=== PATIENT | female | born 1990 | race Caucasian/White ===

== ENCOUNTER 2020-05-08 18:14 | Emergency (ER) | payer OTHER, SELFPAY ==
[2020-05-08 18:24] VITALS: BP 128/80; PULSE 116; PULSE 148; RESP 20; TEMP 36.8; O2SAT 97; O2SAT 99; BMI 27.4
--- NOTE | 2020-05-08 18:31 | ED.ANXIETY ---
HPI - Anxiety General Chief Complaint: Anxiety Stated Complaint: dizziness/anxiety Time Seen by Provider: 05/08/20 18:25 Source: patient Mode of arrival: ambulatory Limitations: no limitations History of Present Illness HPI narrative: Patient comes emergency room complaining of a panic attack, which occurred while she was shopping. Patient initially came in complaining of dizziness, when asked to explain dizziness, patient states that she can not describe the sensation, denies room/self spinning, no loss of balance, no lightheadedness. Patient states she has history of multiple panic attacks, triggers unknown. Patient states she used to take lorazepam 0.5 mg p.r.n., but she was asked to stop taking it approximately 2 years ago when patient was with her 2nd daughter. MD complaint: anxiety Related Data Previous Rx's Medication Instructions Recorded hydroxyzine HCl 50 mg PO BID PRN #10 tab 05/08/20 Allergies Allergy/AdvReac Type Severity Reaction Status Date / Time No Known Allergies Allergy Unverified 10/30/19 18:21 Review of Systems Review of Systems: Constitutional : No Weight loss, No Fever, No Chills, No Night Sweats, No Fatigue, No Malaise ENT/Mouth : No Hearing loss, No Ear Pain, No Nasal Congestion, No Sinus Pain, No Hoarseness, No sore throat, No Rhinorrhea, No Swallowing Difficulty Eyes: No Eye Pain, No Swelling, No Redness, No Foreign Body, No Discharge, No Vision Changes Cardiovascular : No Chest Pain, No SOB, No Dyspnea on Exertion, No Orthopnea, No Edema, complaining of palpitations during the panic attack, now resolved Respiratory : No Cough, No Sputum, No Wheezing, No Smoke Exposure, complaining of shortness of breath during the panic attack, resolved now Gastrointestinal : No Nausea, No Vomiting, No Diarrhea, No Constipation, No abdominal Pain, No Hematochezia, No Melena Genitourinary : no irregular bleeding, No Dysuria, No Urinary Frequency, No Hematuria, No Urinary Incontinence, No Urgency, No Flank Pain, No Urinary Flow Changes, No Hesitancy Musculoskeletal : No joint pain, No Myalgias, No Joint Swelling Skin : No Skin Lesions, No rash Neuro : No Weakness, No Numbness, No Paresthesias, No Loss of Consciousness, No Headache Psych : Complaining of a panic attack, No Depression, No SI/HI/AH/VH, No Social Issues, Heme/Lymph: No Bruising, No Bleeding,No Lymphadenopathy Endocrine : No Polyuria, No Polydipsia, No Temperature Intolerance [facility] Past Medical History Medical History Anxiety Anxiety Psoriasis Social History Social History Advance Directives: No Physical Exam Vital Signs: Vital Signs: Last Vital Signs Temp 98.3 F 05/08/20 18:24 Pulse 116 H 05/08/20 18:24 Resp 20 05/08/20 18:24 Pulse Ox 99 05/08/20 18:24 Body Mass Index 27.4 Appearance: Alert. Oriented X3. No acute distress. Anxious Eyes: Pupils equal, round and reactive to light. ENT: Pharynx normal. Neck: Normal inspection. Neck supple. No lymph nodes noted. No crepitus CVS: Tachycardic, Pulses normal. Normal S1 and S2 Respiratory: No respiratory distress. Breath sounds normal. No Wheezing. No rales , oxygen saturation 99% on room air Abdomen: Soft and nontender. No rigidity. No distention. Skin: Skin warm and dry. Normal skin color. Normal skin turgor. Extremities: No lower extremity edema. No lower extremity edema. No Lacerations. No Rash Neuro: Oriented X 3. No motor deficit. No sensory deficit. Moving all extermities. No slurred speech. Course Course Course Narrative: Patient feeling much better, no longer anxious or having palpitations, no longer having a panic attack. Patient feels back to baseline MDM - Anxiety Lab Data Labs: Lab Results 05/08/20 Range/Units 20:05 Urine Test NEGATIVE (NEGATIVE) ECG Data Attestation: I personally reviewed and interpreted this ECG as follows: (Sinus tachycardia, heart rate 106, ST segment depression or elevation, T-wave inversion in lead III) Discharge Plan Discharge Clinical Impression: Acute anxiety Patient Disposition: Home, Self-Care Instructions: Panic Attack (ED) Additional Instructions: Please follow-up with your primary care physician tomorrow. If you have any worsening or new symptoms, please return to the emergency room or call 911 Prescriptions: New hydroxyzine HCl 50 mg tablet 50 mg PO BID PRN (Reason: nausea and vomiting) Qty: 10 RF: 0
[2020-05-08] MEDS: LORazepam 1 MG TABLET PO (18:43)
[2020-05-08 20:33] LABS: UPreg QC Valid YES; Urine Pregnancy NEGATIVE (NEGATIVE)
--- NOTE | 2020-05-08 20:44 | PC.NURSE ---
pt states im feeling much better . pt speaking on phone.
[2020-05-08 22:22] VITALS: BP 108/50; PULSE 96; RESP 20; TEMP 36.9; O2SAT 97
== END 2020-05-08 22:28 | disposition home or self-care (01) ==
PROVIDERS: Emergency Provider Emergency Medicine
DX: R42 Dizziness and giddiness (principal); F41.9 Anxiety disorder, unspecified; F43.0 Acute stress reaction; Z79.899 Other long term (current) drug therapy
CPT/HCPCS: 81025; 99283

== ENCOUNTER 2022-06-01 11:37 | Emergency (ER) | payer OTHER, SELFPAY ==
--- NOTE | ~2022-06-01 | XR_ITS ---
EXAMINATION: XR CHEST CLINICAL INFORMATION: Left-sided chest pain COMPARISON: None available. TECHNIQUE: 2 views of the chest were obtained. FINDINGS: Lungs are well-inflated and clear. Trachea is midline in position. No interstitial disease, consolidation or mass. No pleural effusion or pneumothorax. Cardiac silhouette and pulmonary vessels are normal in size. The mediastinum and suyapa have normal contour. The visualized bones, and upper abdomen, are unremarkable. No rib fractures are seen on these standard views of the chest. XR/XR chest 2V IMPRESSION: No acute cardiopulmonary abnormality.
--- NOTE | ~2022-06-01 | US_ITS ---
EXAMINATION: US ABDOMEN COMPLETE CLINICAL INFORMATION: Upper abdominal pain. COMPARISON: None available. TECHNIQUE: Real-time imaging of the abdominal viscera. FINDINGS: PANCREAS: Pancreatic head and body are unremarkable. The tail is obscured by gas. ABDOMINAL AORTA: The proximal, mid, and distal segments are normal in caliber. INFERIOR VENA CAVA: Visualized portions are normal. LIVER: Normal. The liver is normal in size. The liver contour is normal. Parenchymal echogenicity is normal. No focal hepatic lesion. There is no intrahepatic biliary duct dilatation seen. GALLBLADDER: Normal. The gallbladder is physiologically distended without evidence of stones, sludge, polyps, wall thickening or pericholecystic fluid. COMMON BILE DUCT: Normal in caliber measuring 0.3 cm in diameter. RIGHT KIDNEY: Normal. No hydronephrosis. No renal calculi or focal parenchymal lesions. The kidney measures 10.9 cm in maximum dimension. LEFT KIDNEY: Normal. No hydronephrosis. No renal calculi or focal parenchymal lesions. The kidney measures 11.3 cm in maximum dimension. SPLEEN: Normal. The spleen measures 11.7 cm in maximum dimension. FREE FLUID: None. US/US abdomen complete IMPRESSION: Unremarkable abdominal ultrasound.
--- NOTE | 2022-06-01 11:44 | ECG_ITS ---
Test Reason : chest pain Blood Pressure : / mmHG Vent. Rate : 078 BPM Atrial Rate : 078 BPM P-R Int : 114 ms QRS Dur : 070 ms QT Int : 356 ms P-R-T Axes : 028 007 003 degrees QTc Int : 405 ms Sinus rhythm with marked sinus arrhythmia Otherwise normal ECG No significant changes when compared with the previous EKG of 24 jun 2012 Referred By: Efrain Mirza Electronically Signed By:SAHARA DIALLO
[2022-06-01 11:46] VITALS: BP 147/74; PULSE 98; O2SAT 100; BMI 26.3
[2022-06-01 11:56] VITALS: BP 117/54; PULSE 85; RESP 18; TEMP 36.8; O2SAT 100
[2022-06-01] MEDS: 0.9 % Sodium Chloride 1,000 ML 999 ML IV (12:02)
[2022-06-01] MEDS: Famotidine/PF 20 MG/2 ML VIAL IVPUSH (12:05)
[2022-06-01] MEDS: ondansetron HCL 4 MG/2 ML VIAL IVPUSH (12:05)
[2022-06-01] MEDS: Ketorolac Tromethamine 15 MG/ML VIAL IVPUSH (12:05)
[2022-06-01 12:06] LABS: MANUAL DIFF FLAG NO
[2022-06-01 12:07] LABS: Basophils Percent Auto 0.5 % (0-2); Eosinophils Percent Auto 0.5 % (0-4); Hematocrit 39.6 % (37.0-47.0); Hemoglobin 12.6 g/dl (12.0-16.0); Imm Gran Abs Auto 0.03 X10*3/uL (0.00-0.03); Imm Gran Pct Auto 0.5 % (0.0-0.4); Lymphocytes Percent Auto 16.4 % (20-40); Mean Corpuscular HGB Conc 31.8 g/dl (31.0-35.0); Mean Corpuscular Hemoglobin 27.8 pg (27.0-33.0); Mean Corpuscular Volume 87.4 fL (80.0-98.0); Mean Platelet Volume 10.9 fL (9.4-12.3); Monocytes Absolute Auto 0.3 X10*3/uL (0.1-1.2); Monocytes Percent Auto 5.8 % (2-11); Neutrophils Absolute Auto 4.5 x10*3/uL (2.0-8.3); Neutrophils Percent Auto 76.3 % (45-73); Platelet Count 228 X10*3/uL (160-400); Red Blood Count 4.53 X10*6/uL (4.20-5.50); Red Cell Distribution Width 14.2 % (11.0-16.0); White Blood Count 5.9 X10*3/uL (4.8-10.8)
[2022-06-01 12:26] LABS: Alanine Aminotransferase 10 U/L (0-31); Albumin Level 4.2 g/dL (3.5-5.0); Alkaline Phosphatase 62 U/L (39-117); Anion Gap 12 (12-20); Aspartate Amino Transferase 13 U/L (5-31); Bilirubin Total 0.3 mg/dL (0.0-1.0); Blood Urea Nitrogen 5 mg/dL (9-16); Calcium 9.6 mg/dL (8.4-10.2); Carbon Dioxide 26 mmol/L (22-29); Chloride 107 mmol/L (96-108); Creatinine Clr Calc Pharmacy 131.7; Estimated Glomerular Filt Rate > 60; Glucose Random 101 mg/dL (60-115); Lipase 15 U/L (8-78); Potassium 4.1 mmol/L (3.3-5.1); Sodium 141 mmol/L (135-145); Total Protein 7.2 g/dL (6.5-8.0)
[2022-06-01 12:35] LABS: Troponin-I High Sensitivity < 2.7 ng/L (<3.5-17.0)
--- NOTE | 2022-06-01 12:40 | PC.NURSE ---
pt a+o x4. pt c/o 5/10 L sided cp x 1wk and abdominal pain x 1wk, n/v, denies diarrhea. she reports that she was seen previously seen at [facility] for the same thing and was told that she was dehydrated. pt has hx of anxiety and does not think this is related.
[2022-06-01 12:44] LABS: Appearance Urine Clear; Color Urine Straw; Glucose Urine UA Negative (Negative); Leukocyte Esterase Urine Negative (Negative); Nitrite Urine Negative (Negative); PH 6.5 (5.0-9.0); Specific Gravity - Urine <= 1.005 (1.005-1.025); Urine Blood Negative (Negative); Urine Ketones Negative (Negative); Urine Protein Negative (Neg-Trace)
[2022-06-01 12:46] LABS: UPreg QC Valid YES; Urine Pregnancy NEGATIVE (NEGATIVE)
--- NOTE | 2022-06-01 12:46 | ED_ITS ---
HPI - Chest Pain General Chief Complaint: Chest Pain Stated Complaint: l sided chest pain Time Seen by Provider: 06/01/22 11:43 Source: patient and EMS Mode of arrival: EMS Limitations: no limitations History of Present Illness HPI narrative: 32-year-old female presents with left-sided chest pain and epigastric abdominal pain. Symptoms have been intermittent. They started a few days ago. They are not associated with exertion. They can be associated with nausea and vomiting. The vomiting has been nonbilious and nonbloody. She denies any fevers or chills. The pain on the chest described as brief, sharp. It is not worse with movement, exertion, inspiration. The pain does not radiate. The pain is desc ribed as moderate 6/10. Patient also complains of epigastric abdominal pain. The pain is moderate. Does not radiate. It is associated with nausea vomiting. The pain is described as aching and burning in sensation. It can be worse with eating it is but no specific foods irritate the symptoms more. Patient denies any diarrhea or constipation or blood in stools. Related Data Previous Rx's Medication Instructions Recorded hydroxyzine HCl 50 mg tablet 50 mg PO BID PRN nausea and 05/08/20 vomiting #10 tabs pantoprazole 40 mg tablet,delayed 40 mg PO DAILY #30 tabs 06/01/22 release prochlorperazine 25 mg rectal 25 mg DC Q12H PRN nausea and 06/01/22 suppository (Compazine) vomiting #12 ea sucralfate 1 gram tablet (Carafate) 1 g PO BID #30 tabs 06/01/22 Allergies Allergy/AdvReac Type Severity Reaction Status Date / Time No Known Allergies Allergy Unverified 10/30/19 18:21 [facility] Past Medical History Medical History Anxiety Anxiety Psoriasis Social History Social History Smoked in Last 30 Days: No Use of substances other than those prescribed or required for medical reasons: No Advance Directives: No Physical Exam Vital Signs: Vital Signs: Last Vital Signs Temp 98.0 F 06/01/22 14:46 Pulse 67 06/01/22 14:46 Resp 14 06/01/22 14:46 BP 107/57 L 06/01/22 14:46 Pulse Ox 100 06/01/22 14:46 O2 Del Method Room Air 06/01/22 14:46 BMI result Body Mass Index 26.3 GEN: Well developed, no acute distress, alert, oriented HEENT: Normocephalic, atraumatic, normal external ears, nose appears normal, no oropharyngeal edema or exudates Eyes: Normal to appearance Neck: Supple, no lymphadenopathy Respiratory: Talks in complete sentences, no respiratory distress, clear to auscultation bilaterally Cardiovascular: Regular rate and rhythm, no murmurs rubs or gallops Abdomen: Soft, epigastric tenderness, negative Stewart sign, negative McBurney's point tenderness, nondistended, no guarding, no rebound Back: No CVA tenderness Extremities: No clubbing cyanosis or edema Neurologic: No focal neurologic deficits, cranial nerves 2-12 intact, strength is 5/5 bilaterally Skin: No rash Course Course Course Narrative: 32-year-old female presents with chest pain and epigastric abdominal pain. Examination revealed tenderness in the epigastric area but otherwise there is no guarding or rebound. There is negative Stewart sign arguing against sinus. There is negative McBurney's point tenderness and exam is not consistent with acute appendicitis. Will diagnosis for the abdominal pain could include dys pepsia, GERD, reflux, dysmotility, IBD, IBS, bacterial overgrowth, dyspepsia. Doubt acute catastrophic abdomin. Patient is also experiencing a sharp intermittent brief left upper chest is not associated with exertion. Examination is benign but pain is not reproducible. Vital signs look good. Her perc criteria are 0. Given epigastric abdominal pain, is quite possible that the chest pain is referred pain that could be related to acid secretion or spasm. Reevaluation(s) Reevaluation #1: feeling much better. Discussed results, discharge plan and follow up. She understands reasons to return to the ED. Time: 15:08 Medications Administered Discontinued Medications Generic Name Dose Route Start Last Admin Trade Name Freq PRN Reason Stop Dose Admin Famotidine 20 mg 06/01/22 11:43 06/01/22 12:05 Famotidine/Pf 20 Mg/2 Ml Vial IVPUSH 06/01/22 11:44 20 mg ONCE ONE Administration Sodium Chloride 1,000 mls @ 999 mls/hr 06/01/22 11:45 06/01/22 14:41 Ns IV 06/01/22 12:45 Infused .Q1H1M XAVIER Infusion Ketorolac Tromethamine 15 mg 06/01/22 11:43 06/01/22 12:05 Ketorolac Tromethamine 15 Mg/Ml Vial IVPUSH 06/01/22 11:44 15 mg ONCE ONE Administration Ondansetron HCl 4 mg 06/01/22 11:43 06/01/22 12:05 Ondansetron Hcl 4 Mg/2 Ml Vial IVPUSH 06/01/22 11:44 4 mg ONCE ONE Administration Medical Decision Making Medical Decision Making [facility] Narrative: 32-year-old female presents with chest pain and epigastric abdominal pain. Examination revealed tenderness in the epigastric area but otherwise there is no guarding or rebound. There is negative Stewart sign arguing against sinus. There is negative McBurney's point tenderness and exam is not consistent with acute appendicitis. Will diagnosis for the abdominal pain could include dyspepsia, GERD, reflux, dysmotility, IBD, IBS, bacterial overgrowth, dyspepsia. Doubt acute catastrophic abdomin. Patient is also experiencing a sharp intermittent brief left upper chest is not associated with exertion. Examination is benign but pain is not reproducible. Vital signs look good. Her perc criteria are 0. Given epigastric abdominal pain, is quite possible that the chest pain is referred pain that could be related to acid secretion or spasm. Differential Diagnosis Differential Diagnoses: The differential diagnosis associated with the presentation includes (Gastritis, peptic ulcer disease, dyspepsia, gastroparesis, IBD, IBS, biliary colic) abdominal pain, n/v Admission/Observation Consideration of admission/observation: Escalation of care including admission/observation considered Lab Data [facility] Lab Attestation statement: I reviewed the patient's lab results. 06/01/22 12:01 06/01/22 12:01 Labs: Lab Results 06/01/22 06/01/22 06/01/22 Range/Units 12:01 12:01 12:01 WBC 5.9 (4.8-10.8) X10*3/uL RBC 4.53 (4.20-5.50) X10*6/uL Hgb 12.6 (12.0-16.0) g/dl Hct 39.6 (37.0-47.0) % MCV 87.4 (80.0-98.0) fL MCH 27.8 (27.0-33.0) pg MCHC 31.8 (31.0-35.0) g/dl RDW 14.2 (11.0-16.0) % Plt Count 228 (160-400) X10*3/uL MPV 10.9 (9.4-12.3) fL Immature Gran % (Auto) 0.5 H (0.0-0.4) % Neut % (Auto) 76.3 H (45-73) % Lymph % (Auto) 16.4 L (20-40) % [place] % (Auto) 5.8 (2-11) % Eos % (Auto) 0.5 (0-4) % Baso % (Auto) 0.5 (0-2) % Lymph # (Auto) 1.0 L (1.2-4.9) X10*3/uL [place] # (Auto) 0.3 (0.1-1.2) X10*3/uL Eos # (Auto) 0.0 (0.0-0.4) X10*3/uL Baso # (Auto) 0.0 (0.0-0.2) X10*3/uL Abs Immat Gran (auto) 0.03 (0.00-0.03) X10*3/uL Absolute Neuts (auto) 4.5 (2.0-8.3) x10*3/uL Absolute Nucleated RBC 0.000 (0.0-0.012) X10*3/uL Nucleated RBC % (auto) 0.0 (0.0-0.2) /100WBC Sodium 141 (135-145) mmol/L Potassium 4.1 (3.3-5.1) mmol/L Chloride 107 (96-108) mmol/L Carbon Dioxide 26 (22-29) mmol/L Anion Gap 12 (12-20) BUN 5 L (9-16) mg/dL Creatinine 0.62 (0.5-1.4) mg/dL Estim Creat Clear Calc 131.7 Estimated GFR > 60 Random Glucose 101 (60-115) mg/dL Calcium 9.6 (8.4-10.2) mg/dL Total Bilirubin 0.3 (0.0-1.0) mg/dL AST 13 (5-31) U/L ALT 10 (0-31) U/L Alkaline Phosphatase 62 (39-117) U/L Troponin I High Sens < 2.7 (<3.5-17.0) ng/L Total Protein 7.2 (6.5-8.0) g/dL Albumin 4.2 (3.5-5.0) g/dL Lipase 15 (8-78) U/L Urine Color Urine Appearance Urine pH (5.0-9.0) Ur Specific [place] (1.005-1.025) Urine Protein (Neg-Trace) mg/dL Urine Glucose (UA) (Negative) mg/dL Urine Ketones (Negative) mg/dL Urine Blood (Negative) Urine Nitrite (Negative) Ur Leukocyte Esterase (Negative) Urine Test (NEGATIVE) 06/01/22 06/01/22 Range/Units 12:37 12:37 WBC (4.8-10.8) X10*3/uL RBC (4.20-5.50) X10*6/uL Hgb (12.0-16.0) g/dl Hct (37.0-47.0) % MCV (80.0-98.0) fL MCH (27.0-33.0) pg MCHC (31.0-35.0) g/dl RDW (11.0-16.0) % Plt Count (160-400) X10*3/uL MPV (9.4-12.3) fL Immature Gran % (Auto) (0.0-0.4) % Neut % (Auto) (45-73) % Lymph % (Auto) (20-40) % [place] % (Auto) (2-11) % Eos % (Auto) (0-4) % Baso % (Auto) (0-2) % Lymph # (Auto) (1.2-4.9) X10*3/uL [place] # (Auto) (0.1-1.2) X10*3/uL Eos # (Auto) (0.0-0.4) X10*3/uL Baso # (Auto) (0.0-0.2) X10*3/uL Abs Immat Gran (auto) (0.00-0.03) X10*3/uL Absolute Neuts (auto) (2.0-8.3) x10*3/uL Absolute Nucleated RBC (0.0-0.012) X10*3/uL Nucleated RBC % (auto) (0.0-0.2) /100WBC Sodium (135-145) mmol/L Potassium (3.3-5.1) mmol/L Chloride (96-108) mmol/L Carbon Dioxide (22-29) mmol/L Anion Gap (12-20) BUN (9-16) mg/dL Creatinine (0.5-1.4) mg/dL Estim Creat Clear Calc Estimated GFR Random Glucose (60-115) mg/dL Calcium (8.4-10.2) mg/dL Total Bilirubin (0.0-1.0) mg/dL AST (5-31) U/L ALT (0-31) U/L Alkaline Phosphatase (39-117) U/L Troponin I High Sens (<3.5-17.0) ng/L Total Protein (6.5-8.0) g/dL Albumin (3.5-5.0) g/dL Lipase (8-78) U/L Urine Color Straw Urine Appearance Clear Urine pH 6.5 (5.0-9.0) Ur Specific [place] <= 1.005 (1.005-1.025) Urine Protein Negative (Neg-Trace) mg/dL Urine Glucose (UA) Negative (Negative) mg/dL Urine Ketones Negative (Negative) mg/dL Urine Blood Negative (Negative) Urine Nitrite Negative (Negative) Ur Leukocyte Esterase Negative (Negative) Urine Test NEGATIVE (NEGATIVE) Independent Interpretation I performed an independent interpretation of an: EKG (Normal sinus rhythm heart rate 78 with sinus arrhythmia, no acute ST elevations or depressions, nonspeci fic T-wave changes), Plain X-Ray (Chest: NAD) and Ultrasound (Abd - NAD) Radiology Impression Discussion of test interpretation with radiology: I have reviewed the radiologist's reading. ( US/US abdomen complete IMPRESSION: Unremarkable abdominal ultrasound. Dictated By:Merritt Andersen MDSigned By:<Electronically signed by Merritt Andersen MD in OV>06/01/22 1403) Independent Historian Clinical information obtained from an independent historian. History obtained from or confirmed by: EMS Tests considered The following testing was considered but not selected: CT abdomen and pelvis Prescription Management I considered prescription management with: Pain Medication Discharge Plan Discharge Clinical Impression: Atypical chest pain, Abdominal pain, epigastric Patient Disposition: Home, Self-Care Instructions: Chest Pain (ED), Indigestion (ED), Abdominal Pain (ED) Additional Instructions: You will start pantoprazole 40 mg daily Will will also take Carafate as directed As needed you may use either ondansatron dissolvable tablet or compazine suppos itory. Start a probiotic of choice (i.e. acidophylus or lactobacillus) avoid dairy and acidic foods and beverages Drink 2 liters of water over the course of the day. Prescriptions: New pantoprazole 40 mg tablet,delayed release (DR/EC) 40 mg PO DAILY Qty: 30 0RF prochlorperazine [Compazine] 25 mg suppository 25 mg DC Q12H PRN (Reason: nausea and vomiting) Qty: 12 0RF sucralfate [Carafate] 1 gram tablet 1 g PO BID Qty: 30 0RF No Action hydroxyzine HCl 50 mg tablet 50 mg PO BID PRN (Reason: nausea and vomiting) Qty: 10 0RF Rx Instructions: P.r.n. anxiety Referrals: Marc Pérez MD [Physician] - 1 week Physician,Vu J [Primary Care Provider] - 5 days
[2022-06-01 14:46] VITALS: BP 107/57; PULSE 67; RESP 14; TEMP 36.7; O2SAT 100
--- NOTE | 2022-06-01 15:54 | PC.NURSE ---
pt cleared for discharge. discharge summary reviewed with pt. denies pain, vss.
== END 2022-06-01 15:54 | disposition home or self-care (01) ==
PROVIDERS: Emergency Provider Emergency Medicine
DX: R07.89 Other chest pain (principal); R10.13 Epigastric pain
CPT/HCPCS: 36415; 71046; 76700; 80053; 81003; 81025; 83690; 84484; 85025; 93005; 96361; 96374; 96375; 99284; 99285; J1885; J2405